=== PATIENT | female | born 1960 | race Caucasian/White ===

== ENCOUNTER 2018-08-05 17:20 | Emergency (ER) | payer OTHER ==
[2018-08-05] MEDS ORDERED: oxyCODONE/Acetamin 5/325 MG* TAB PO ONE (17:54)
[2018-08-05] MEDS ORDERED: Lidocaine 2% EPI 1:200000 MPF*10-20 ML VIAL INJ ONE (17:54)
--- NOTE | 2018-08-05 18:25 | ED ---
Upper Extremity Pain - HPI Summary HPI Summary: 57-year-old female presents with left wrist injury shape. She states she slipped and landed on her outstretch hand. deformity noted to left wrist. She admits to some tingling in her fingers. No previous fracture to the area. 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 No elbow pain. No other injury. - History of Current Complaint Chief Complaint: EDExtremityUpper Stated Complaint: LEFT ARM INJURY Time Seen by Provider: 08/05/18 17:37 - Allergies/Home Medications Allergies/Adverse Reactions: Allergies Allergy/AdvReac Type Severity Reaction Status Date / Time No Known Allergies Allergy Verified 08/05/18 17:29 PMH/Surg Hx/FS Hx/Imm Hx Endocrine/Hematology History: Denies: Hx Anticoagulant Therapy Cardiovascular History: Denies: Hx Hypertension Infectious Disease History: No Infectious Disease History: Denies: Traveled Outside the [place] in Last 30 Days - Family History Known Family History: Positive: Non-Contributory - Social History Alcohol Use: None Substance Use Type: Reports: None Smoking Status (MU): Never Smoked Tobacco Review of Systems Negative: Fever Negative: Chest Pain Negative: Shortness Of Breath Positive: Myalgia - left wrist deformity All Other Systems Reviewed And Are Negative: Yes Physical Exam Triage Information Reviewed: Yes Vital Signs On Initial Exam: Initial Vitals Temp Pulse Resp BP Pulse Ox 98.3 F 53 17 138/71 100 08/05/18 17:22 08/05/18 17:22 08/05/18 17:22 08/05/18 17:22 08/05/18 17:22 Vital Signs Reviewed: Yes Appearance: Positive: Well-Appearing Skin: Positive: Warm, Dry Head/Face: Positive: Normal Head/Face Inspection Eyes: Positive: Normal, Conjunctiva Clear ENT: Positive: Pharynx normal Respiratory/Lung Sounds: Positive: Clear to Auscultation, Breath Sounds Present Cardiovascular: Positive: Normal, RRR Musculoskeletal: Positive: Other - deformity to left wrist, good pulses, sensation grossly intact. capillary refill<2 secs Neurological: Positive: Normal Psychiatric: Positive: Normal Procedures - Splinting left wrist Location: left wrist Hand-Made Type: orthoglass Splint: sugar-tong Pre-Proc Neuro Vasc Exam: normal Post-Proc Neuro Vasc Exam: normal - Joint Reduction wrist Joint Reduction Site: wrist (L) Conscious Sedation: No Reduction Attempts: 1 - finger traps and manual Pre-Procedure NV Exam: Yes Post Joint Reduction Film: joint reduced - slight improvement Diagnostics - Vital Signs Vital Signs Temp Pulse Resp BP Pulse Ox 08/05/18 17:22 98.3 F 53 17 138/71 100 - Laboratory Lab Statement: Any lab studies that have been ordered have been reviewed, and results considered in the medical decision making process. - Radiology wrist Radiology Interpretation Completed By: ED Physician Summary of Radiographic Findings: displaced radius fracture wrist post reduction Radiology Interpretation Completed By: ED Physician Summary of Radiographic Findings: some improvement in displacement of radius fracture Course/Dx - Course Course Of Treatment: 57-year-old female presents with left wrist injury shape. She states she slipped and landed on her outstretch hand. deformity noted to left wrist. She admits to some tingling in her fingers. No previous fracture to the area. 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 No elbow pain. No other injury. on exam has deformity noted to left wrist. good pulses. sensation grossly intact. xray shows radial fracture with displacement. performed hematoma block and placed in finger traps and manually reduced fracture. xray some improvement. place in sugar tong splint. spoke with dr lindo who recommends elevation. will have follow up with ortho. patient understand and agrees with plan. - Diagnoses Differential Diagnosis/HQI/PQRI: Positive: Fracture (Closed), Strain, Sprain Provider Diagnoses: Left radial fracture Discharge - Sign-Out/Discharge Documenting (check all that apply): Patient Departure Patient Received Moderate/Deep Sedation with Procedure: No - Discharge Plan Condition: Good Disposition: HOME Prescriptions: HYDROcodone/ACETAMIN 5-325 MG* [Parker 5-325 TAB*] 1 tab PO Q6H PRN #20 tab MDD 4 PRN Reason: Pain Patient Education Materials: Wrist Fracture in Adults (ED) Referrals: Liborio Chavis FOLLOW UP REP [Primary Care Provider] - Marilu Anguiano MD [Medical Doctor] - Additional Instructions: Keep elbow in sling as needed Keep splint on area and keep dry Call ortho office tomorrow to set up appointment for follow up Use ibuprofenor tyenlol for pain every 6 hours and use norco for breakthrough pain every 6 hours Ice, elevate Return to ED if develop any new or worsening symptoms - Billing Disposition and Condition Condition: GOOD Disposition: Home
[2018-08-05 20:38] VITALS: BP 107/73
== END 2018-08-05 20:44 | disposition home or self-care (01) ==
LOC: ED 17:20
DX: S52.502A Unspecified fracture of the lower end of left radius, initial encounter for closed fracture (principal); W01.0XXA Fall on same level from slipping, tripping and stumbling without subsequent striking against object, initial encounter; Y92.9 Unspecified place or not applicable
CPT/HCPCS: 99282; A9270-GY

== ENCOUNTER 2018-08-09 09:27 | Day surgery (SDC) | payer OTHER ==
[~2018-08-09 09:27] MED LIST: Buffered Lidocaine 1% SYRIN* 1 ML/SYRINGE INTRADERM ONE; Dexamethasone TAB* 4 MG PO ONE; DiMENhydriNATE IV* 50 MG/ML VIAL IV PUSH PRN; Famotidine IV* 10 MG/ML 2 ML (20 mg) IV ONE; Lactated Ringers 1000 ML Bag* 1,000 ML IV SCH; Morphine VIAL* 4 MG/ML VIAL (1 ml vial) IV PRN; Naloxone* 0.4 MG/ML 1 ML VIAL IV PRN; Ondansetron TAB* 4 MG PO ONE; PROCHLORPERAZINE INJ 5 MG/ML 2 ML VIAL IV PRN; Scopolamine 1.5 mg* PATCH TRANSDERM PRN; fentaNYL* 50 MCG/ML 2 ML VIAL (100 MCG VIAL) IV PRN; oxyCODONE/Acetamin 5/325 MG* TAB PO PRN
[2018-08-09] MEDS ORDERED: Dexamethasone TAB* 4 MG ONE (10:23)
[2018-08-09] MEDS ORDERED: ceFAZolin 2 GM PREMIX in ORs 2 GM/50 ML BAG IVPB ONE (10:23)
[2018-08-09] MEDS ORDERED: Ondansetron ODT TAB* 4 MG ONE (10:23)
[2018-08-09] MEDS ORDERED: Famotidine IV* 10 MG/ML 2 ML (20 mg) ONE (10:23)
[2018-08-09] MEDS ORDERED: Midazolam* 1 MG/ML 5 ML VIAL (5 MG) ONE (11:27)
[2018-08-09] MEDS ORDERED: fentaNYL* 50 MCG/ML 2 ML VIAL (100 MCG VIAL) ONE (11:27)
[2018-08-09] MEDS ORDERED: ROPIVACAINE 5 MG/ML 30 ML BTL (0.5%) ONE (11:51)
[2018-08-09] MEDS ORDERED: Bupivacaine 0.5% SDV PF* 30ML VIAL ONE (12:00)
[2018-08-09] MEDS ORDERED: Midazolam* 1 MG/ML 2 ML VIAL (2 MG) ONE (12:19)
[2018-08-09] MEDS ORDERED: Ketorolac INJ* 30 MG/ML 1 ML VIAL ONE (12:41)
[2018-08-09] MEDS ORDERED: Lidocaine 2% PF * 5 ML VIAL ONE (12:41)
[2018-08-09] MEDS ORDERED: Propofol* 10 MG/ML 20 ML BTL ONE (12:41)
[2018-08-09 14:04] VITALS: BP 110/66
--- NOTE | 2018-08-09 14:38 | OP ---
DATE OF OPERATION: 08/09/18 [facility] DATE OF : 64 SURGEON: Marilu Anguiano MD BARYTES GRINDER: JARETT Schwarz ANESTHESIA: Block. PRE-OP DIAGNOSIS: Extraarticular fracture of the left distal radius. POST-OP DIAGNOSIS: Extraarticular fracture of the left distal radius. OPERATIVE PROCEDURE: Open reduction internal fixation of the left distal radius. INDICATIONS FOR PROCEDURE: Elizabeth is a 57-year-old woman who slipped and fell on the ice and injured her left wrist. Closed reduction of the distal radius fracture that she suffered was inadequate and she presents now for open reduction internal fixation. ESTIMATED BLOOD LOSS: Zero. TOURNIQUET TIME: About 40 minutes. DESCRIPTION OF PROCEDURE: The patient was brought to the operating room, was given a sedation anesthetic and a block anesthetic. The skin of her left upper extremity was prepped and draped in the usual sterile fashion. The hand and forearm were exsanguinated and the tourniquet elevated to 250 mmHg. A longitudinal incision was made overlying the FCR tendon. We dissected through the subcutaneous tissue to the FCR tendon sheath. It was incised superficial and deep portion and then the FPL muscle was retracted ulnarly. The pronator quadratus was incised and subperiosteally dissected off the distal radius. The fracture fragments were reduced with manipulation and traction, and then we secured a 3-hole variable angle plate to the distal radius with 3 proximal and 4 distal screws. The position of the hardware and fracture fragments was checked on the C-arm in the AP and lateral views and found to be satisfactory. The wound was irrigated. The pronator quadratus was repaired over the plate with 2-0 Vicryl suture, the FCR tendon sheath was repaired with 2-0 Vicryl suture, and the skin edges were reapproximated with 4- 0 nylon suture. The wound was dressed with Xeroform, 4x4, Webril, and a volar splint. The patient tolerated the procedure well and was brought to the recovery room in good condition. [id number]/[facility] #: [id number] [facility] MEDICAL CENTERFlakita
[2018-08-12] MEDS ORDERED: Scopolamine PATCH Remove* 1 NOTE MISC PATCH OFF ONE (06:00)
== END 2018-08-09 14:24 | disposition home or self-care (01) ==
LOC: OREAST 09:27
PROVIDERS: ATTEND Orthopaedic Surgery
DX: S52.552A Other extraarticular fracture of lower end of left radius, initial encounter for closed fracture (principal); W00.0XXA Fall on same level due to ice and snow, initial encounter; Y92.9 Unspecified place or not applicable
CPT/HCPCS: 76000; A9270-GY; C1713; C1776; J0690; J1885; J2250; J2704; J2795; J3010; J8540